=== PATIENT | female | born 1995 | race Caucasian/White ===

== ENCOUNTER 2017-04-24 11:17 | Emergency (ER) | payer MEDICAID ==
[~2017-04-24] VITALS: Ht 157.5 cm; Wt 67.0 kg
[~2017-04-24 11:17] MED LIST: ACET500C5 PO; AMO500 PO; IBUP400T22 PO; UDROBDM PO
[2017-04-24 11:20] VITALS: Ht 157.5 cm; Wt 67.0 kg
[2017-04-24 12:18] LABS: ADD UMIC NO; UR ASCORBIC ACID NEGATIVE (NEGATIVE); UR BILIRUBIN (Dip) NEGATIVE (NEGATIVE); UR BLOOD (Dip) NEGATIVE (NEGATIVE); UR CLARITY SLIGHTLY CLOUDY (CLEAR); UR COLOR YELLOW (YELLOW); UR GLUCOSE (Dip) NEGATIVE (NEGATIVE); UR KETONES (Dip) NEGATIVE (NEGATIVE); UR LEUKOCYTE ESTERASE (Dip) NEGATIVE Leu/ul (NEGATIVE); UR NITRITE (Dip) NEGATIVE (NEGATIVE); UR RBC 1 /HPF (0-5); UR SPECIFIC GRAVITY (Dip) 1.024 (1.003-1.030); UR SQUAMOUS EPITHELIAL CELL FEW /HPF (FEW); UR TOTAL PROTEIN (Dip) NEGATIVE (NEGATIVE); UR UROBILINOGEN (Dip) NEGATIVE (NEGATIVE)
--- NOTE | 2017-04-24 13:29 | RADRPT ---
PROCEDURE: US Pelvis CLINICAL INDICATION: pelvic pain,start drinking water 12;30 TECHNIQUE: Multiple sonographic images of the pelvis were obtained utilizing a transabdominal and endovaginal technique. The images were reviewed on a PACS workstation. COMPARISON: None. FINDINGS: The uterus measures 7.0 x 2.7 x 3.4 cm. The endometrial echo complex measures 8 mm in thickness. N o discrete lesion is seen. The right ovary measures 3.4 x 2.0 x 2.6 cm. The left ovary measures 3.8 x 1.9 x 1.9 cm. There is no rmal vascular flow in both ovaries. No significant ovarian lesions are seen. No significant pelvic free fluid is identified. IMPRESSION: Unremarkable pelvic ultrasound, as above. RPTAT: EE Physician Jessy Date Time Electronically viewed and signed by Physician Jessy on 04/24/2017 13:28 /
[2017-04-24] MEDS ORDERED: IBUP-1542 PO (13:41)
--- NOTE | 2017-04-24 13:44 | ERD ---
ER Documentation Chief Complaint Date/Time DATE: 04/24/17 TIME: 13:43 Chief Complaint pelvic pain x 1 year HPI Patient is a 21-year-old female who states she has had lower pelvic pain for over a year. She also states it has been 9 months since her last menstrual period. She denies dysuria hematuria or frequency. Denies any fever. Denies any vaginal bleeding. Denies any nausea vomiting. Denies diarrhea. Pain is mild to moderate. She has not seen her primary care doctor for this. ROS All systems reviewed and are negative except as per history of present illness. Medications Home Meds Active Scripts Ibuprofen* (Motrin*) 600 Mg Tab, 600 MG PO Q6H Y for PAIN AND OR ELEVATED TEMP, #30 TAB Prov:FABIOLA QUEZADA PA-C 04/24/17 Amoxicillin* (Amoxicillin*) 500 Mg Cap, 500 MG PO TID for 7 Days, #21 CAP 0 Refills Prov:EV ENG PA-C 06/04/16 Guaifenesin-Dextromethorphan* (Robitussin* DM) 100MG/10MG/5ML Syrup, 5 ML PO Q6H Y for COUGH for 6 Days, #120 ML 0 Refills Prov:EV ENG PA-C 06/04/16 Ibuprofen* (Motrin*) 400 Mg Tab, 400 MG PO Q6 for 7 Days, #30 TAB 0 Refills Prov:EV ENG PA-C 06/04/16 Acetaminophen* (Tylophen*) 500 Mg Capsule, 1 CAP PO Q6H Y for PAIN AND OR ELEVATED TEMP for 7 Days, #30 CAP 0 Refills Prov:EV ENG PA-C 06/04/16 Allergies Allergies: Coded Allergies: No Known Allergy (Unverified , 06/04/16) PMhx/Soc History of Surgery: No Anesthesia Reaction: No Hx Neurological Disorder: No Hx Respiratory Disorders: No Hx Cardiac Disorders: No Hx Psychiatric Problems: No Hx Miscellaneous Medical Probl: No Hx Alcohol Use: No Hx Substance Use: No Hx Tobacco Use: No Smoking Status: Never smoker FmHx Family History: No diabetes Physical Exam Vitals Vital Signs Date Time Temp Pulse Resp B/P Pulse Ox O2 Delivery O2 Flow Rate FiO2 04/24/17 11:20 98.1 73 18 121/58 97 Physical Exam INITIAL VITAL SIGNS: Reviewed by me GENERAL: Awake, alert and oriented x 4, well appearing, nontoxic, speaking in full sentences. No acute distress HEAD: Atraumatic NECK: Supple. No masses. Full range of motion. No meningismus. No midline tenderness. RESPIRATORY: Clear to auscultation bilaterally. Symmetric chest wall rise. No wheezing or rales. No accessory muscle use. CV: Regular rate and rhythm. No murmurs, rubs, or gallops. ABDOMEN: Soft, non-distended. Nontender. Negative [place]. Negative [place]Burneys point tenderness. No CVA tenderness bilaterally. No guarding. No rebound. : Deffered. Results 24 hrs Laboratory Tests Test 04/24/17 12:00 Urine Color YELLOW Urine Clarity SLIGHTLY CLOUDY Urine pH 8.0 Urine Specific [place] 1.024 Urine Ketones NEGATIVEmg/dL Urine Nitrite NEGATIVEmg/dL Urine Bilirubin NEGATIVEmg/dL Urine Urobilinogen NEGATIVEmg/dL Urine Leukocyte Esterase NEGATIVELeu/ul Urine Microscopic RBC 1/HPF Urine Microscopic WBC 0/HPF Urine Squamous Epithelial Cells FEW/HPF Urine Hemoglobin NEGATIVEmg/dL Urine Glucose NEGATIVEmg/dL Urine Total Protein NEGATIVEmg/dl Procedures/MDM Patients is alert, oriented, well appearing, and in no distress with normal vital signs. There is no fever, tachycardia, or tachypnea. The differential diagnosis includes but is not limited to appendicitis, cholelithiasis, cholecystitis, pancreatitis, hepatitis, gastritis, peptic ulcer disease, bowel obstruction, diverticulitis, renal disease including stones, torsion, AAA, pyelonephritis, and others. Patient's exam is normal. Ultrasound was unremarkable and urine is without any evidence of infection. She is not . She is given prescription for Motrin and copies of ultrasound reports she can follow-up with primary care doctor. Patient counseled regarding my diagnostic impression and care plan. Prior to discharge all questions answered. Pt agrees with treatment plan and understands strict return precautions. Pt is instructed to follow up with primary care provider within 24- 48 hours. Precautionary instructions provided including instructions to return to the ER if not improving or for any worsening or changing symptoms or concerns. Departure Diagnosis: Primary Impression: Amenorrhea Additional Impression: Pelvic pain Condition: Stable Patient Instructions: Pelvic Pain, Unknown Cause [facility] Usted se narvaez hecho un examen mdico de control que le indica que no est en devorah condicin que requiera tratamiento urgente en el Departamento de Emergencia. Un estudio ms profundo y el tratamiento de alcaraz condicin pueden esperar sin ningn riesgo hasta que usted sea atendida/o en el consultorio de alcaraz mdico o devorah cl kalia. Es responsabilidad suya arreglar devorah hayden para el seguimiento del destinee. MANEJO DE CONDICIONES NO URGENTES EN EL FUTURO 1) Si usted tiene un mdico de atencin primaria: Usted debera llamar a alcaraz mdico de atencin primaria antes de venir al departamento de emergencia. Despus de las horas de consultorio, alcaraz doctor o alcaraz asociado/a est disponible por telfono. El mdico o enfermero de tayla en el servicio telefnico puede asesorarle por gus medio para atender el problema, o destinee contrario se puede programar devorah hayden. 2) Si usted no tiene un mdico de atencin primaria: Llame al mdico o clnica de referencia que aparece abajo francine las horas de consultorio para hacer devorah hayden para que le vean. CLINICAS: [place] [id number] [phone] [facility] [facility] [phone] [facility]. [facility] [phone] [facility] [place] [id number] [phone] [facility] [place] [id number] [phone] [facility]. [phone] [address] Additional Instructions: Llame al doctor MAANA y clay devorah HAYDEN PARA DENTRO DE 1-2 RAMOS.Dgale a la secretaria que nosotros le instruimos hacer esta hayden.Avise o llame si alcaraz condicin se empeora antes de la hayden. Regresa aqui si peor o no mejor. FABIOLA QUEZADA PA-C Apr 24, 2017 13:44
== END 2017-04-24 13:48 | disposition home or self-care (01) ==
LOC: FTE 11:17
DX: N91.2 Amenorrhea, unspecified (principal)
CPT/HCPCS: 76856; 81001; Z7502; 81003

== ENCOUNTER 2018-02-18 17:00 | Emergency (ER) | END 2018-02-18 19:36 | disposition home or self-care (01) ==

== ENCOUNTER 2018-09-08 10:48 | Emergency (ER) | END 2018-09-08 12:53 | disposition home or self-care (01) ==